=== PATIENT | male | born 1950 | race Caucasian/White ===

== ENCOUNTER 2024-04-06 14:03 | Outpatient (CLI) | payer MEDICARE, SELFPAY ==
[2024-04-06 14:58] LABS: Alanine Aminotransferase 20 U/L (6-50); Aspartate Amino Transferase 23 U/L (17-59)
== END 2024-04-06 14:04 | disposition home or self-care (01) ==
LOC: ANHLAB 14:13
PROVIDERS: PCP Internal Medicine; Visit Provider Podiatrist Foot & Ankle Surgery
DX: B35.1 Tinea unguium (principal)
CPT/HCPCS: 36415; 84450; 84460